=== PATIENT | female | born 1990 | race Asian ===

== ENCOUNTER 2022-01-19 03:31 | Emergency (ER) | payer BC ==
[2022-01-19] MEDS ORDERED: Ondansetron ODT 4 MG TAB ONE (04:12)
[2022-01-19] MEDS ORDERED: Dicyclomine 20 MG TAB ONE (04:14)
== END 2022-01-19 05:15 | disposition home or self-care (01) ==
LOC: CSHERS 03:31
DX: R10.33 Periumbilical pain (principal); R11.10 Vomiting, unspecified
CPT/HCPCS: 96360; Q0162

== ENCOUNTER 2022-01-24 06:59 | Inpatient (IN) | payer BC ==
[2022-01-24 07:51] LABS: #Basophils 0.1 10x3/uL (0.0-0.2); #Eosinphils 0.2 10x3/uL (0.0-0.5); #Monocytes 0.8 10x3/uL (0.0-1.1); #Neutrophils 10.5 10x3/uL (1.5-8.4); %Basophils 0.4 % (0.0-2.0); %Eosinophils 1.5 % (0.0-6.0); %Lymphocytes 16.1 % (18.0-47.0); %Monocytes 5.9 % (0.0-10.0); %Neutrophils 75.7 % (40.0-75.0); Hemoglobin 12.4 g/dL (12.0-15.5); Mean Corpuscular HGB CONC 32.5 g/dL (32.0-36.0); Mean Corpuscular Hemoglobin 26.6 pg (27.0-33.0); Mean Corpuscular Volume 81.8 fl (81.6-98.3); Mean Platelet Volume 9.7 fl (7.4-10.4); Platelet Count 418 10x3/uL (150-450); RBC Distribution Width 13.1 % (11.5-14.5); Red Blood Cell (RBC) Count 4.67 10x6/uL (3.90-5.03); White Blood Cell (WBC) Count 13.9 10x3/uL (3.5-10.5)
[2022-01-24] MEDS ORDERED: Piperacillin/Tazobactam 3.375 GM VIAL ONE (08:11)
[2022-01-24] MEDS ORDERED: Ketorolac Tromethamine 30 MG/ML VIAL ONE (08:11)
[2022-01-24 08:18] LABS: ALT (SGPT) 9 U/L (8-55); AST (SGOT) 11 U/L (5-34); Alkaline Phosphatase 77 U/L (40-110); Anion Gap 14 mmol/L (10-20); BUN (Urea Nitrogen) 5 mg/dL (7.0-18.7); Bilirubin, Total 0.4 mg/dL (0.2-1.2); Calc. Creatinine Clearance 0 mL/min (70-130); Calcium 9.3 mg/dL (7.8-10.44); Carbon Dioxide 26 mmol/L (22-29); Chloride 102 mmol/L (98-107); Estimated GFR 100; Globulin 3.6 g/dL (2.4-3.5); Glucose 100 mg/dL (70-105); Potassium 4.3 mmol/L (3.5-5.1); Protein, Total 7.6 g/dL (6.0-8.3); Sodium 138 mmol/L (136-145)
[2022-01-24 08:29] LABS: Bilirubin Neg (Negative); Blood, Urine 10 (Negative); Clarity Clear (Clear); Glucose, Urine (Dipstick) Normal (Negative); Ketone, Urine Negative (Negative); Leukocyte 25 (Negative); Nitrite Negative (Negative); Protein, Urine (Dipstick) Negative (Neg-Trace); Urobilinogen Normal mg/dL (Less than 2)
[2022-01-24 08:35] LABS: Pregnancy Test - Urine (BHCG) Negative (Negative); Pregu Control Background? CLEAR/WHITE (CLR/WHITE); Pregu Control Bar Appear? YES (CONTROL BAR)
[2022-01-24 08:40] LABS: Bacteria/HPF 2+ HPF (None Seen); RBC/HPF 0-3 HPF (0-3); Squamous Epithelial 0-3 HPF (0-3); WBC/HPF 0-3 HPF (0-3)
[2022-01-24] MEDS ORDERED: methylPREDNISolone Sod Succ/PF 125 MG/2 ML VIAL ONE (09:03)
[2022-01-24] MEDS ORDERED: diphenhydrAMINE 50 MG/ML VIAL ONE (09:03)
[2022-01-24] MEDS ORDERED: Iopamidol 300 61% 100 ML VIAL FS ONE (10:01)
[2022-01-24 10:32] LABS: SARS-CoV-2 NAA Rapid Test Not Detected (NotDetected)
[2022-01-24] MEDS ORDERED: Ondansetron PF 4 MG/2 ML Vial IVP PRN (12:29)
[2022-01-24] MEDS ORDERED: Morphine 4 MG/ML VIAL SLOW IVP PRN ×2 (12:30→16:50)
[2022-01-24] MEDS ORDERED: Meropenem 1 GM in Sodium Chloride 0.9% 100 ML IVPB SCH (17:00)
[2022-01-24 17:36] VITALS: BMI 29.7
[2022-01-24] MEDS ORDERED: Meropenem 1 GM VIAL ONE (17:58)
[2022-01-24] MEDS ORDERED: Piperacillin/Tazobactam 3.375 GM in Sodium Chloride 0.9% 100 ML IVPB SCH (18:00)
[2022-01-24] MEDS: D5 1/2 NS w/20 mEq KCL 1,000 ML IV SCH (18:00)
[2022-01-25] MEDS: Meropenem 1 GM in Sodium Chloride 0.9% 100 ML IVPB SCH ×3 (01:15→17:00)
[2022-01-25] MEDS: D5 1/2 NS w/20 mEq KCL 1,000 ML IV SCH ×2 (03:38→13:10)
[2022-01-25] MEDS: Enoxaparin Sodium 40 MG/0.4 ML SYRINGE SC SCH (09:02)
[2022-01-25] MEDS: Famotidine/PF 20 mg/2ml Vial SLOW IVP SCH ×2 (09:02→20:37)
[2022-01-25 09:37] LABS: #Basophils 0.1 10x3/uL (0.0-0.2); #Monocytes 0.7 10x3/uL (0.0-1.1); #Neutrophils 10.1 10x3/uL (1.5-8.4); %Basophils 0.4 % (0.0-2.0); %Eosinophils 0.2 % (0.0-6.0); %Lymphocytes 19.9 % (18.0-47.0); %Monocytes 5.1 % (0.0-10.0); Hemoglobin 11.5 g/dL (12.0-15.5); Mean Corpuscular HGB CONC 33.2 g/dL (32.0-36.0); Mean Corpuscular Hemoglobin 27.3 pg (27.0-33.0); Mean Corpuscular Volume 82.2 fl (81.6-98.3); Mean Platelet Volume 9.8 fl (7.4-10.4); Platelet Count 408 10x3/uL (150-450); RBC Distribution Width 12.9 % (11.5-14.5); Red Blood Cell (RBC) Count 4.21 10x6/uL (3.90-5.03); White Blood Cell (WBC) Count 13.6 10x3/uL (3.5-10.5)
[2022-01-25 09:50] LABS: Anion Gap 11 mmol/L (10-20); BUN (Urea Nitrogen) 8 mg/dL (7.0-18.7); Calc. Creatinine Clearance 155 mL/min (70-130); Calcium 8.8 mg/dL (7.8-10.44); Carbon Dioxide 25 mmol/L (22-29); Chloride 106 mmol/L (98-107); Estimated GFR 121; Glucose 100 mg/dL (70-105); Potassium 4.1 mmol/L (3.5-5.1); Sodium 138 mmol/L (136-145)
[2022-01-25] MEDS ORDERED: Acetaminophen 325 MG TAB PO PRN (11:25)
[2022-01-25] MEDS: Ketorolac Tromethamine 30 MG/ML VIAL IVP PRN (13:21)
[2022-01-26] MEDS: Meropenem 1 GM in Sodium Chloride 0.9% 100 ML IVPB SCH ×3 (01:15→17:00)
[2022-01-26] MEDS: D5 1/2 NS w/20 mEq KCL 1,000 ML IV SCH ×3 (01:15→20:56)
[2022-01-26] MEDS: Acetaminophen 325 MG TAB PO PRN ×2 (01:16→17:02)
[2022-01-26 04:47] LABS: #Basophils 0.1 10x3/uL (0.0-0.2); #Eosinphils 0.1 10x3/uL (0.0-0.5); #Monocytes 0.8 10x3/uL (0.0-1.1); #Neutrophils 8.9 10x3/uL (1.5-8.4); %Basophils 0.6 % (0.0-2.0); %Eosinophils 0.7 % (0.0-6.0); %Lymphocytes 19.2 % (18.0-47.0); %Monocytes 6.4 % (0.0-10.0); %Neutrophils 72.7 % (40.0-75.0); Hemoglobin 12.1 g/dL (12.0-15.5); Mean Corpuscular Hemoglobin 26.8 pg (27.0-33.0); Mean Corpuscular Volume 81.2 fl (81.6-98.3); Mean Platelet Volume 9.9 fl (7.4-10.4); Platelet Count 413 10x3/uL (150-450); RBC Distribution Width 12.8 % (11.5-14.5); Red Blood Cell (RBC) Count 4.52 10x6/uL (3.90-5.03); White Blood Cell (WBC) Count 12.2 10x3/uL (3.5-10.5)
[2022-01-26] MEDS: Enoxaparin Sodium 40 MG/0.4 ML SYRINGE SC SCH (08:46)
[2022-01-26] MEDS: Famotidine/PF 20 mg/2ml Vial SLOW IVP SCH ×2 (08:47→20:57)
[2022-01-26] MEDS: Ketorolac Tromethamine 30 MG/ML VIAL IVP PRN (17:00)
[2022-01-27] MEDS: Meropenem 1 GM in Sodium Chloride 0.9% 100 ML IVPB SCH ×2 (00:49→09:01)
[2022-01-27 04:52] LABS: #Basophils 0.1 10x3/uL (0.0-0.2); #Eosinphils 0.2 10x3/uL (0.0-0.5); #Monocytes 0.7 10x3/uL (0.0-1.1); #Neutrophils 6.1 10x3/uL (1.5-8.4); %Basophils 0.6 % (0.0-2.0); %Eosinophils 1.6 % (0.0-6.0); %Monocytes 7.1 % (0.0-10.0); %Neutrophils 61.2 % (40.0-75.0); Hemoglobin 12.2 g/dL (12.0-15.5); Mean Corpuscular HGB CONC 33.2 g/dL (32.0-36.0); Mean Corpuscular Hemoglobin 26.9 pg (27.0-33.0); Mean Corpuscular Volume 81.1 fl (81.6-98.3); Mean Platelet Volume 9.7 fl (7.4-10.4); Platelet Count 446 10x3/uL (150-450); RBC Distribution Width 12.8 % (11.5-14.5); Red Blood Cell (RBC) Count 4.54 10x6/uL (3.90-5.03); White Blood Cell (WBC) Count 9.9 10x3/uL (3.5-10.5)
[2022-01-27] MEDS: D5 1/2 NS w/20 mEq KCL 1,000 ML IV SCH ×2 (05:50→12:52)
[2022-01-27] MEDS: Enoxaparin Sodium 40 MG/0.4 ML SYRINGE SC SCH (09:00)
[2022-01-27] MEDS: Famotidine/PF 20 mg/2ml Vial SLOW IVP SCH (09:01)
[2022-01-27 11:29] VITALS: TEMP 97.5
[2022-01-27] MEDS ORDERED: metroNIDAZOLE 500 MG TAB PO SCH ×2 (12:15→21:00)
[2022-01-27] MEDS: Acetaminophen 325 MG TAB PO PRN (13:10)
[2022-01-27 14:55] VITALS: BP 110/59
== END 2022-01-27 15:10 | disposition home or self-care (01) | DRG 373 ==
LOC: CSHERS 06:59 → CSHERHOLD 13:28 → CSHTELE 16:39
PROVIDERS: ADMIT Family Medicine; ATTEND Family Medicine
DX: K35.33 Acute appendicitis with perforation, localized peritonitis, and gangrene, with abscess (principal); Z20.822 Contact with and (suspected) exposure to COVID-19; Z90.721 Acquired absence of ovaries, unilateral
CPT/HCPCS: 36415; 74177; 80048; 80053; 81003; 81015; 81025; 85025; 96374; 96375; J1200; J1650; J1885; J2185; J2405; J2543; J2930; J3480; J3490; Q9967; S0028; U0002

== ENCOUNTER 2022-01-28 10:37 | Emergency (ER) | payer BC ==
[~2022-01-28 10:37] MED LIST: Iopamidol 300 61% 100 ML VIAL FS ONE
[2022-01-28 12:34] LABS: Bilirubin Neg (Negative); Blood, Urine 250 (Negative); Glucose, Urine (Dipstick) Normal (Negative); Ketone, Urine 5 mg/dL (Negative); Leukocyte 100 (Negative); Nitrite Negative (Negative); Protein, Urine (Dipstick) 30 mg/dl (Neg-Trace); Urobilinogen Normal mg/dL (Less than 2)
[2022-01-28 12:40] LABS: Clarity Slightly Cloudy (Clear)
[2022-01-28 13:00] LABS: Bacteria/HPF 1+ HPF (None Seen)
[2022-01-28] MEDS ORDERED: Ondansetron ODT 4 MG TAB ONE (14:24)
[2022-01-28 14:31] LABS: Bilirubin Neg (Negative); Blood, Urine Negative (Negative); Clarity Clear (Clear); Glucose, Urine (Dipstick) Normal (Negative); Ketone, Urine Negative (Negative); Leukocyte 25 (Negative); Nitrite Negative (Negative); Protein, Urine (Dipstick) Negative (Neg-Trace); Urobilinogen Normal mg/dL (Less than 2)
[2022-01-28 14:44] LABS: Bacteria/HPF None Seen HPF (None Seen); RBC/HPF 0-3 HPF (0-3); Squamous Epithelial 0-3 HPF (0-3); WBC/HPF 0-3 HPF (0-3)
== END 2022-01-28 17:00 | disposition home or self-care (01) ==
LOC: CSHERS 10:37
DX: R30.0 Dysuria (principal); R31.9 Hematuria, unspecified; R10.9 Unspecified abdominal pain; Z79.899 Other long term (current) drug therapy
CPT/HCPCS: 51701; 74177; 81003; 81015; Q0162; Q9967

== ENCOUNTER 2022-02-01 14:44 | Inpatient (IN) | payer BC ==
[2022-02-01 15:17] LABS: #Basophils 0.1 10x3/uL (0.0-0.2); #Monocytes 1.4 10x3/uL (0.0-1.1); #Neutrophils 12.7 10x3/uL (1.5-8.4); %Basophils 0.3 % (0.0-2.0); %Eosinophils 0.2 % (0.0-6.0); %Lymphocytes 17.1 % (18.0-47.0); %Monocytes 8.2 % (0.0-10.0); %Neutrophils 73.8 % (40.0-75.0); Hemoglobin 12.7 g/dL (12.0-15.5); Mean Corpuscular HGB CONC 33.2 g/dL (32.0-36.0); Mean Corpuscular Hemoglobin 26.7 pg (27.0-33.0); Mean Corpuscular Volume 80.3 fl (81.6-98.3); Mean Platelet Volume 9.5 fl (7.4-10.4); Platelet Count 521 10x3/uL (150-450); RBC Distribution Width 12.9 % (11.5-14.5); Red Blood Cell (RBC) Count 4.76 10x6/uL (3.90-5.03); White Blood Cell (WBC) Count 17.2 10x3/uL (3.5-10.5)
[2022-02-01 15:29] LABS: ALT (SGPT) 11 U/L (8-55); AST (SGOT) 11 U/L (5-34); Albumin 3.9 g/dL (3.5-5.0); Alkaline Phosphatase 80 U/L (40-110); Anion Gap 13 mmol/L (10-20); BUN (Urea Nitrogen) 8 mg/dL (7.0-18.7); Bilirubin, Total 0.3 mg/dL (0.2-1.2); Calc. Creatinine Clearance 0 mL/min (70-130); Calcium 9.2 mg/dL (7.8-10.44); Carbon Dioxide 26 mmol/L (22-29); Chloride 100 mmol/L (98-107); Estimated GFR 108; Glucose 98 mg/dL (70-105); Lipase 13 U/L (8-78); Potassium 4.5 mmol/L (3.5-5.1); Protein, Total 7.9 g/dL (6.0-8.3); Sodium 134 mmol/L (136-145)
[2022-02-01] MEDS ORDERED: Ondansetron PF 4 MG/2 ML Vial ONE (15:30)
[2022-02-01] MEDS ORDERED: Morphine 4 MG/ML VIAL ONE (15:30)
[2022-02-01 15:31] LABS: Bilirubin Neg (Negative); Blood, Urine 250 (Negative); Clarity Clear (Clear); Glucose, Urine (Dipstick) Normal (Negative); Ketone, Urine Negative (Negative); Leukocyte 25 (Negative); Nitrite Negative (Negative); Protein, Urine (Dipstick) 15 mg/dl (Neg-Trace); Urobilinogen Normal mg/dL (Less than 2)
[2022-02-01 15:44] LABS: Pregnancy Test - Urine (BHCG) Negative (Negative); Pregu Control Background? CLEAR/WHITE (CLR/WHITE); Pregu Control Bar Appear? YES (CONTROL BAR)
[2022-02-01 15:50] LABS: Bacteria/HPF 1+ HPF (None Seen); RBC/HPF 0-3 HPF (0-3); Squamous Epithelial 0-3 HPF (0-3); WBC/HPF 0-3 HPF (0-3)
[2022-02-01] MEDS ORDERED: Cefepime 1 GM VIAL ONE (18:23)
[2022-02-01] MEDS ORDERED: metroNIDAZOLE 500 MG/100 ML BAG ONE (18:58)
[2022-02-01] MEDS ORDERED: Acetaminophen 325 MG TAB PO PRN (21:30)
[2022-02-01] MEDS ORDERED: Ondansetron PF 4 MG/2 ML Vial IVP PRN (21:30)
[2022-02-01] MEDS ORDERED: Ondansetron ODT 4 MG TAB SL PRN (21:30)
[2022-02-01] MEDS: Morphine 4 MG/ML VIAL SLOW IVP PRN (21:32)
[2022-02-01] MEDS: Sodium Chloride 0.9% 1,000 ML IV SCH (21:43)
[2022-02-01 21:47] VITALS: BMI 30.4
[2022-02-01] MEDS ORDERED: Piperacillin/Tazobactam 3.375 GM in Sodium Chloride 0.9% 100 ML IVPB SCH (22:00)
[2022-02-02 01:06] LABS: SARS-CoV-2 NAA Rapid Test Not Detected (NotDetected)
[2022-02-02] MEDS: Morphine 4 MG/ML VIAL SLOW IVP PRN (01:38)
[2022-02-02] MEDS: Sodium Chloride 0.9% 1,000 ML IV SCH (07:25)
[2022-02-02] MEDS ORDERED: FLU VACC QS2022-23(6MOS UP)/PF 60 MCG/0.5 ML SYRINGE IM ONE (08:00)
[2022-02-02] MEDS ORDERED: Sodium Chloride 0.9% 1,000 ML IV SCH (09:15)
[2022-02-02] MEDS: Morphine 2 MG/ML VIAL SLOW IVP PRN (09:36)
[2022-02-02] MEDS: Cefepime 2 GM in Sodium Chloride 0.9% 100 ML IVPB SCH ×2 (11:44→23:16)
[2022-02-02] MEDS: metroNIDAZOLE 500 MG in Premix Bag 1 BAG IVPB SCH ×2 (12:55→21:19)
[2022-02-02] MEDS ORDERED: Dexmedetomidine 200 MCG/2 ML VIAL ONE (15:50)
[2022-02-02] MEDS ORDERED: hydrALAZINE 20 MG/ML VIAL SLOW IVP PRN (15:50)
[2022-02-02] MEDS ORDERED: Dextrose 50% Abboject 50 ML SYRINGE SLOW IVP PRN (15:50)
[2022-02-02] MEDS ORDERED: Dextrose 5% in Water 1,000 ML IV PRN (15:50)
[2022-02-02] MEDS ORDERED: Fentanyl 100 MCG/2 ML VIAL ONE ×2 (15:54→18:57)
[2022-02-02] MEDS ORDERED: PROPOFOL 20 ML ONE ×2 (15:54→18:57)
[2022-02-02] MEDS ORDERED: Ondansetron PF 4 MG/2 ML Vial ONE (15:55)
[2022-02-02] MEDS ORDERED: Succinylcholine 200 MG/10 ml SYRINGE FS ONE (15:55)
[2022-02-02] MEDS ORDERED: Dexamethasone 20 MG/5 ML VIAL ONE (15:55)
[2022-02-02] MEDS ORDERED: Rocuronium Bromide 10 MG/ML (10ML VIAL) ONE ×2 (15:55→18:21)
[2022-02-02] MEDS ORDERED: EPINEPHrine 1 MG/ML AMP ONE (16:01)
[2022-02-02] MEDS ORDERED: Bupivacaine 0.25% HCL 30 ML VIAL ONE (16:01)
[2022-02-02] MEDS ORDERED: ePHEDrine Sulfate 50 MG/10 ML VIAL ONE (17:36)
[2022-02-02] MEDS ORDERED: Ketorolac Tromethamine 30 MG/ML VIAL IVP SCH (18:00)
[2022-02-02] MEDS ORDERED: Albumin 5% 250 ML ONE (18:23)
[2022-02-02] MEDS ORDERED: Ketorolac Tromethamine 30 MG/ML VIAL ONE (18:51)
[2022-02-02] MEDS ORDERED: Glycopyrrolate 0.2 MG/ML 5 ML SYRINGE ONE (18:51)
[2022-02-02] MEDS: Famotidine/PF 20 mg/2ml Vial SLOW IVP SCH (21:18)
[2022-02-02] MEDS: Ketorolac Tromethamine 30 MG/ML VIAL IVP SCH (21:18)
[2022-02-02] MEDS: D5 1/2 NS w/20 mEq KCL 1,000 ML IV SCH (21:18)
[2022-02-03] MEDS: Ketorolac Tromethamine 30 MG/ML VIAL IVP SCH ×4 (01:11→20:53)
[2022-02-03] MEDS: metroNIDAZOLE 500 MG in Premix Bag 1 BAG IVPB SCH ×3 (04:32→20:55)
[2022-02-03 05:11] LABS: Anion Gap 12 mmol/L (10-20); BUN (Urea Nitrogen) 8 mg/dL (7.0-18.7); Calc. Creatinine Clearance 147 mL/min (70-130); Calcium 8.7 mg/dL (7.8-10.44); Carbon Dioxide 25 mmol/L (22-29); Chloride 103 mmol/L (98-107); Estimated GFR 117; Glucose 228 mg/dL (70-105); Potassium 4.7 mmol/L (3.5-5.1); Sodium 135 mmol/L (136-145)
[2022-02-03 05:14] LABS: #Monocytes 0.7 10x3/uL (0.0-1.1); #Neutrophils 17.8 10x3/uL (1.5-8.4); %Basophils 0.2 % (0.0-2.0); %Eosinophils 0.1 % (0.0-6.0); %Lymphocytes 4.6 % (18.0-47.0); %Monocytes 3.8 % (0.0-10.0); %Neutrophils 90.9 % (40.0-75.0); Hemoglobin 11.5 g/dL (12.0-15.5); Mean Corpuscular HGB CONC 33.6 g/dL (32.0-36.0); Mean Corpuscular Hemoglobin 27.1 pg (27.0-33.0); Mean Corpuscular Volume 80.7 fl (81.6-98.3); Mean Platelet Volume 9.7 fl (7.4-10.4); Platelet Count 469 10x3/uL (150-450); RBC Distribution Width 13.1 % (11.5-14.5); Red Blood Cell (RBC) Count 4.24 10x6/uL (3.90-5.03); White Blood Cell (WBC) Count 19.6 10x3/uL (3.5-10.5)
[2022-02-03] MEDS: D5 1/2 NS w/20 mEq KCL 1,000 ML IV SCH (08:03)
[2022-02-03] MEDS: D5 0.9% NS w/ 20 mEq KCl 1,000 ML IV SCH ×2 (08:54→20:53)
[2022-02-03] MEDS: Famotidine/PF 20 mg/2ml Vial SLOW IVP SCH ×2 (08:55→20:54)
[2022-02-03] MEDS: Enoxaparin Sodium 40 MG/0.4 ML SYRINGE SC SCH (08:59)
[2022-02-03] MEDS ORDERED: Polyethylene Glycol 3350 17 GM Packet PO SCH (16:30)
[2022-02-03] MEDS: HYDROcodone/Acetaminophen 10/325 mg Tablet PO PRN (18:42)
[2022-02-03] MEDS: Cefepime 2 GM in Sodium Chloride 0.9% 100 ML IVPB SCH ×2 (18:43→23:31)
[2022-02-03] MEDS: Morphine 2 MG/ML VIAL SLOW IVP PRN (22:20)
[2022-02-04] MEDS: Ketorolac Tromethamine 30 MG/ML VIAL IVP SCH ×4 (01:10→20:00)
[2022-02-04] MEDS: Ondansetron PF 4 MG/2 ML Vial IVP PRN ×3 (01:12→19:58)
[2022-02-04] MEDS: metroNIDAZOLE 500 MG in Premix Bag 1 BAG IVPB SCH ×3 (04:26→20:01)
[2022-02-04] MEDS: D5 0.9% NS w/ 20 mEq KCl 1,000 ML IV SCH ×4 (04:28→20:11)
[2022-02-04] MEDS: Morphine 2 MG/ML VIAL SLOW IVP PRN ×4 (04:37→23:15)
[2022-02-04 05:25] LABS: #Monocytes 0.5 10x3/uL (0.0-1.1); %Basophils 0.2 % (0.0-2.0); %Eosinophils 0.1 % (0.0-6.0); %Lymphocytes 5.9 % (18.0-47.0); %Monocytes 3.3 % (0.0-10.0); %Neutrophils 90.1 % (40.0-75.0); Hemoglobin 10.9 g/dL (12.0-15.5); Mean Corpuscular HGB CONC 33.4 g/dL (32.0-36.0); Mean Corpuscular Hemoglobin 27.3 pg (27.0-33.0); Mean Corpuscular Volume 81.7 fl (81.6-98.3); Mean Platelet Volume 9.7 fl (7.4-10.4); Platelet Count 522 10x3/uL (150-450); RBC Distribution Width 13.2 % (11.5-14.5); Red Blood Cell (RBC) Count 3.99 10x6/uL (3.90-5.03); White Blood Cell (WBC) Count 14.5 10x3/uL (3.5-10.5)
[2022-02-04 05:31] LABS: Anion Gap 12 mmol/L (10-20); BUN (Urea Nitrogen) 8 mg/dL (7.0-18.7); Calc. Creatinine Clearance 158 mL/min (70-130); Calcium 8.3 mg/dL (7.8-10.44); Carbon Dioxide 24 mmol/L (22-29); Chloride 106 mmol/L (98-107); Estimated GFR 121; Glucose 138 mg/dL (70-105); Potassium 4.2 mmol/L (3.5-5.1); Sodium 138 mmol/L (136-145)
[2022-02-04] MEDS: HYDROcodone/Acetaminophen 10/325 mg Tablet PO PRN ×3 (09:30→19:59)
[2022-02-04] MEDS: Enoxaparin Sodium 40 MG/0.4 ML SYRINGE SC SCH (09:30)
[2022-02-04] MEDS: Famotidine/PF 20 mg/2ml Vial SLOW IVP SCH ×2 (09:30→20:00)
[2022-02-04] MEDS: Polyethylene Glycol 3350 17 GM Packet PO SCH (10:51)
[2022-02-04] MEDS: Cefepime 2 GM in Sodium Chloride 0.9% 100 ML IVPB SCH ×2 (11:43→23:15)
[2022-02-04] MEDS ORDERED: metroNIDAZOLE 500 MG/100 ML BAG ONE (13:54)
[2022-02-04] MEDS ORDERED: Sodium Chloride 0.9% 1,000 ML IV SCH (19:15)
[2022-02-05] MEDS: Ketorolac Tromethamine 30 MG/ML VIAL IVP SCH ×4 (02:13→21:43)
[2022-02-05] MEDS: Ondansetron PF 4 MG/2 ML Vial IVP PRN ×2 (02:14→08:46)
[2022-02-05 04:12] LABS: Hemoglobin 10.9 g/dL (12.0-15.5); Mean Corpuscular HGB CONC 32.4 g/dL (32.0-36.0); Mean Corpuscular Hemoglobin 26.7 pg (27.0-33.0); Mean Corpuscular Volume 82.4 fl (81.6-98.3); Mean Platelet Volume 9.7 fl (7.4-10.4); Platelet Count 570 10x3/uL (150-450); RBC Distribution Width 13.4 % (11.5-14.5); Red Blood Cell (RBC) Count 4.08 10x6/uL (3.90-5.03); White Blood Cell (WBC) Count 17.6 10x3/uL (3.5-10.5)
[2022-02-05] MEDS: metroNIDAZOLE 500 MG in Premix Bag 1 BAG IVPB SCH ×3 (04:15→21:45)
[2022-02-05 04:21] LABS: Anion Gap 12 mmol/L (10-20); BUN (Urea Nitrogen) 8 mg/dL (7.0-18.7); Calc. Creatinine Clearance 134 mL/min (70-130); Calcium 8.3 mg/dL (7.8-10.44); Carbon Dioxide 23 mmol/L (22-29); Chloride 102 mmol/L (98-107); Estimated GFR 105; Glucose 163 mg/dL (70-105); Potassium 4.7 mmol/L (3.5-5.1); Sodium 132 mmol/L (136-145)
[2022-02-05 04:25] LABS: MDiff Complete? YES
[2022-02-05 04:28] LABS: Band 28 % (5-11); Eosinophils 1 % (0-10); Lymphocytes 7 % (21-51)
[2022-02-05 04:29] LABS: Monocytes 1 % (0-10); Neutrophil 63 % (42-75)
[2022-02-05 04:30] LABS: Platelet Morphology Comment Appears Increased; RBC Morphology Normal
[2022-02-05] MEDS: D5 0.9% NS w/ 20 mEq KCl 1,000 ML IV SCH ×2 (06:23→18:15)
[2022-02-05] MEDS: Enoxaparin Sodium 40 MG/0.4 ML SYRINGE SC SCH (08:47)
[2022-02-05] MEDS: Famotidine/PF 20 mg/2ml Vial SLOW IVP SCH ×2 (08:47→21:43)
[2022-02-05] MEDS: Polyethylene Glycol 3350 17 GM Packet PO SCH (08:47)
[2022-02-05] MEDS: Cefepime 2 GM in Sodium Chloride 0.9% 100 ML IVPB SCH (12:10)
[2022-02-05] MEDS: Morphine 2 MG/ML VIAL SLOW IVP PRN (12:20)
[2022-02-05] MEDS ORDERED: Midazolam HCl 2 mg/2 ml Vial ONE (13:16)
[2022-02-05] MEDS ORDERED: Fentanyl 100 MCG/2 ML VIAL ONE ×2 (13:16→16:02)
[2022-02-05] MEDS ORDERED: Ondansetron PF 4 MG/2 ML Vial ONE (13:16)
[2022-02-05] MEDS ORDERED: Dexamethasone 4 mg/ml Vial ONE (13:16)
[2022-02-05] MEDS ORDERED: Rocuronium Bromide 10 MG/ML (10ML VIAL) ONE (13:16)
[2022-02-05] MEDS ORDERED: PROPOFOL 20 ML ONE (13:16)
[2022-02-05] MEDS ORDERED: Propofol 1,000 MG/100 ML VIAL IV ONE (13:17)
[2022-02-05] MEDS ORDERED: HYDROmorphone 0.5 MG/0.5 ML SYRINGE ONE (13:17)
[2022-02-05] MEDS ORDERED: Norepinephrine 4 MG/4 ML VIAL ONE (13:48)
[2022-02-05] MEDS ORDERED: Glycopyrrolate 0.2 MG/ML 5 ML SYRINGE ONE (15:54)
[2022-02-06] MEDS: Ketorolac Tromethamine 30 MG/ML VIAL IVP SCH ×4 (01:52→21:31)
[2022-02-06] MEDS: Cefepime 2 GM in Sodium Chloride 0.9% 100 ML IVPB SCH ×3 (01:52→23:58)
[2022-02-06] MEDS: D5 0.9% NS w/ 20 mEq KCl 1,000 ML IV SCH ×2 (02:00→11:00)
[2022-02-06 05:10] LABS: Potassium 4.9 mmol/L (3.5-5.1)
[2022-02-06] MEDS: metroNIDAZOLE 500 MG in Premix Bag 1 BAG IVPB SCH ×3 (06:32→21:27)
[2022-02-06 08:17] LABS: #Monocytes 0.6 10x3/uL (0.0-1.1); #Neutrophils 11.9 10x3/uL (1.5-8.4); %Basophils 0.1 % (0.0-2.0); %Eosinophils 0.1 % (0.0-6.0); %Lymphocytes 5.7 % (18.0-47.0); %Monocytes 4.5 % (0.0-10.0); %Neutrophils 89.1 % (40.0-75.0); Hemoglobin 9.5 g/dL (12.0-15.5); Mean Corpuscular HGB CONC 32.4 g/dL (32.0-36.0); Mean Corpuscular Hemoglobin 26.4 pg (27.0-33.0); Mean Corpuscular Volume 81.4 fl (81.6-98.3); Mean Platelet Volume 9.4 fl (7.4-10.4); Platelet Count 499 10x3/uL (150-450); RBC Distribution Width 13.4 % (11.5-14.5); White Blood Cell (WBC) Count 13.4 10x3/uL (3.5-10.5)
[2022-02-06 08:31] LABS: ALT (SGPT) 6 U/L (8-55); AST (SGOT) 10 U/L (5-34); Albumin 2.1 g/dL (3.5-5.0); Alkaline Phosphatase 43 U/L (40-110); Anion Gap 10 mmol/L (10-20); BUN (Urea Nitrogen) 7 mg/dL (7.0-18.7); Bilirubin, Total 0.2 mg/dL (0.2-1.2); Calc. Creatinine Clearance 165 mL/min (70-130); Calcium 7.6 mg/dL (7.8-10.44); Carbon Dioxide 25 mmol/L (22-29); Chloride 107 mmol/L (98-107); Estimated GFR 122; Globulin 2.6 g/dL (2.4-3.5); Glucose 134 mg/dL (70-105); Potassium 4.3 mmol/L (3.5-5.1); Protein, Total 4.7 g/dL (6.0-8.3); Sodium 138 mmol/L (136-145)
[2022-02-06] MEDS: Enoxaparin Sodium 40 MG/0.4 ML SYRINGE SC SCH (10:03)
[2022-02-06] MEDS: Polyethylene Glycol 3350 17 GM Packet PO SCH (10:04)
[2022-02-06] MEDS: Famotidine/PF 20 mg/2ml Vial SLOW IVP SCH ×2 (10:04→21:31)
[2022-02-06] MEDS: Morphine 2 MG/ML VIAL SLOW IVP PRN (13:40)
[2022-02-06] MEDS: HYDROcodone/Acetaminophen 10/325 mg Tablet PO PRN (23:59)
[2022-02-07] MEDS: Ketorolac Tromethamine 30 MG/ML VIAL IVP SCH ×4 (01:33→21:15)
[2022-02-07] MEDS: D5 0.9% NS w/ 20 mEq KCl 1,000 ML IV SCH ×3 (03:00→10:17)
[2022-02-07 04:09] LABS: #Eosinphils 0.2 10x3/uL (0.0-0.5); #Monocytes 0.7 10x3/uL (0.0-1.1); #Neutrophils 10.8 10x3/uL (1.5-8.4); %Basophils 0.2 % (0.0-2.0); %Eosinophils 1.4 % (0.0-6.0); %Lymphocytes 10.3 % (18.0-47.0); %Monocytes 5.4 % (0.0-10.0); %Neutrophils 82.2 % (40.0-75.0); Hemoglobin 8.7 g/dL (12.0-15.5); Mean Corpuscular HGB CONC 33.5 g/dL (32.0-36.0); Mean Corpuscular Hemoglobin 27.4 pg (27.0-33.0); Mean Platelet Volume 9.4 fl (7.4-10.4); Platelet Count 521 10x3/uL (150-450); RBC Distribution Width 13.3 % (11.5-14.5); Red Blood Cell (RBC) Count 3.17 10x6/uL (3.90-5.03); White Blood Cell (WBC) Count 13.2 10x3/uL (3.5-10.5)
[2022-02-07 04:27] LABS: ALT (SGPT) 6 U/L (8-55); AST (SGOT) 10 U/L (5-34); Albumin 2.2 g/dL (3.5-5.0); Alkaline Phosphatase 46 U/L (40-110); Anion Gap 12 mmol/L (10-20); BUN (Urea Nitrogen) 10 mg/dL (7.0-18.7); Calc. Creatinine Clearance 156 mL/min (70-130); Calcium 7.7 mg/dL (7.8-10.44); Carbon Dioxide 22 mmol/L (22-29); Chloride 109 mmol/L (98-107); Estimated GFR 121; Globulin 2.7 g/dL (2.4-3.5); Glucose 122 mg/dL (70-105); Potassium 4.4 mmol/L (3.5-5.1); Protein, Total 4.9 g/dL (6.0-8.3); Sodium 139 mmol/L (136-145)
[2022-02-07] MEDS: metroNIDAZOLE 500 MG in Premix Bag 1 BAG IVPB SCH ×3 (04:43→21:16)
[2022-02-07 04:58] LABS: Bilirubin, Total 0.2 mg/dL (0.2-1.2)
[2022-02-07] MEDS: Enoxaparin Sodium 40 MG/0.4 ML SYRINGE SC SCH (10:15)
[2022-02-07] MEDS: Polyethylene Glycol 3350 17 GM Packet PO SCH (10:16)
[2022-02-07] MEDS: Famotidine/PF 20 mg/2ml Vial SLOW IVP SCH ×2 (10:16→21:16)
[2022-02-07] MEDS: Cefepime 2 GM in Sodium Chloride 0.9% 100 ML IVPB SCH (13:06)
[2022-02-07] MEDS: Ondansetron PF 4 MG/2 ML Vial IVP PRN (14:28)
[2022-02-07 16:44] LABS: #Eosinphils 0.2 10x3/uL (0.0-0.5); #Neutrophils 11.9 10x3/uL (1.5-8.4); %Basophils 0.2 % (0.0-2.0); %Eosinophils 1.6 % (0.0-6.0); %Lymphocytes 11.3 % (18.0-47.0); %Monocytes 6.5 % (0.0-10.0); %Neutrophils 79.9 % (40.0-75.0); Hemoglobin 9.1 g/dL (12.0-15.5); Mean Corpuscular HGB CONC 33.1 g/dL (32.0-36.0); Mean Corpuscular Hemoglobin 27.1 pg (27.0-33.0); Mean Corpuscular Volume 81.8 fl (81.6-98.3); Mean Platelet Volume 9.2 fl (7.4-10.4); Platelet Count 556 10x3/uL (150-450); RBC Distribution Width 13.3 % (11.5-14.5); Red Blood Cell (RBC) Count 3.36 10x6/uL (3.90-5.03); White Blood Cell (WBC) Count 14.8 10x3/uL (3.5-10.5)
[2022-02-07] MEDS: HYDROcodone/Acetaminophen 10/325 mg Tablet PO PRN ×2 (18:08→21:24)
[2022-02-08] MEDS: metroNIDAZOLE 500 MG in Premix Bag 1 BAG IVPB SCH ×3 (04:25→20:16)
[2022-02-08 04:34] LABS: Anion Gap 9 mmol/L (10-20); BUN (Urea Nitrogen) 7 mg/dL (7.0-18.7); Calc. Creatinine Clearance 177 mL/min (70-130); Calcium 7.8 mg/dL (7.8-10.44); Carbon Dioxide 25 mmol/L (22-29); Chloride 104 mmol/L (98-107); Estimated GFR 124; Glucose 121 mg/dL (70-105); Potassium 3.9 mmol/L (3.5-5.1); Sodium 134 mmol/L (136-145)
[2022-02-08] MEDS: HYDROcodone/Acetaminophen 10/325 mg Tablet PO PRN (04:36)
[2022-02-08] MEDS: Cefepime 2 GM in Sodium Chloride 0.9% 100 ML IVPB SCH ×2 (05:31→16:20)
[2022-02-08] MEDS: D5 0.9% NS w/ 20 mEq KCl 1,000 ML IV SCH ×2 (07:49→08:12)
[2022-02-08] MEDS: Famotidine/PF 20 mg/2ml Vial SLOW IVP SCH (08:12)
[2022-02-08] MEDS: Morphine 2 MG/ML VIAL SLOW IVP PRN ×2 (08:12→20:15)
[2022-02-08] MEDS: Enoxaparin Sodium 40 MG/0.4 ML SYRINGE SC SCH (08:12)
[2022-02-08] MEDS ORDERED: Acetaminophen 500 MG TAB PO SCH (10:15)
[2022-02-08] MEDS: traMADol HCl 50 MG TAB PO PRN (12:49)
[2022-02-08] MEDS: Ondansetron PF 4 MG/2 ML Vial IVP PRN ×2 (15:15→20:16)
[2022-02-08] MEDS: Promethazine HCl 25 MG/ML VIAL IM PRN (16:20)
[2022-02-08] MEDS: Acetaminophen 500 MG TAB PO PRN (23:56)
[2022-02-09] MEDS: metroNIDAZOLE 500 MG in Premix Bag 1 BAG IVPB SCH ×3 (04:04→20:18)
[2022-02-09] MEDS: Acetaminophen 500 MG TAB PO PRN ×3 (05:34→20:18)
[2022-02-09] MEDS: Cefepime 2 GM in Sodium Chloride 0.9% 100 ML IVPB SCH ×2 (05:34→17:11)
[2022-02-09] MEDS: Enoxaparin Sodium 40 MG/0.4 ML SYRINGE SC SCH (08:09)
[2022-02-09] MEDS: D5 0.9% NS w/ 20 mEq KCl 1,000 ML IV SCH ×2 (11:25→22:46)
[2022-02-09] MEDS ORDERED: metroNIDAZOLE 500 MG/100 ML BAG ONE (11:26)
[2022-02-10] MEDS: Ondansetron PF 4 MG/2 ML Vial IVP PRN ×2 (04:09→20:38)
[2022-02-10] MEDS: metroNIDAZOLE 500 MG in Premix Bag 1 BAG IVPB SCH ×3 (04:10→20:38)
[2022-02-10] MEDS: Promethazine HCl 25 MG/ML VIAL IM PRN (05:27)
[2022-02-10] MEDS: Cefepime 2 GM in Sodium Chloride 0.9% 100 ML IVPB SCH ×2 (05:29→17:27)
[2022-02-10] MEDS: D5 0.9% NS w/ 20 mEq KCl 1,000 ML IV SCH ×3 (06:03→20:30)
[2022-02-10 06:17] LABS: #Eosinphils 0.2 10x3/uL (0.0-0.5); #Monocytes 0.8 10x3/uL (0.0-1.1); #Neutrophils 9.4 10x3/uL (1.5-8.4); %Basophils 0.2 % (0.0-2.0); %Eosinophils 1.6 % (0.0-6.0); %Lymphocytes 13.8 % (18.0-47.0); %Monocytes 6.3 % (0.0-10.0); %Neutrophils 76.6 % (40.0-75.0); Hemoglobin 9.2 g/dL (12.0-15.5); Mean Corpuscular HGB CONC 34.3 g/dL (32.0-36.0); Mean Corpuscular Hemoglobin 27.3 pg (27.0-33.0); Mean Corpuscular Volume 79.5 fl (81.6-98.3); Mean Platelet Volume 9.5 fl (7.4-10.4); Platelet Count 539 10x3/uL (150-450); RBC Distribution Width 13.1 % (11.5-14.5); Red Blood Cell (RBC) Count 3.37 10x6/uL (3.90-5.03); White Blood Cell (WBC) Count 12.3 10x3/uL (3.5-10.5)
[2022-02-10 06:34] LABS: ALT (SGPT) 8 U/L (8-55); AST (SGOT) 18 U/L (5-34); Albumin 2.2 g/dL (3.5-5.0); Alkaline Phosphatase 65 U/L (40-110); Anion Gap 15 mmol/L (10-20); BUN (Urea Nitrogen) 4 mg/dL (7.0-18.7); Bilirubin, Total 0.2 mg/dL (0.2-1.2); Calc. Creatinine Clearance 193 mL/min (70-130); Calcium 7.7 mg/dL (7.8-10.44); Carbon Dioxide 24 mmol/L (22-29); Chloride 99 mmol/L (98-107); Estimated GFR 127; Globulin 3.1 g/dL (2.4-3.5); Glucose 80 mg/dL (70-105); Magnesium 1.7 mg/dL (1.6-2.6); Potassium 3.6 mmol/L (3.5-5.1); Protein, Total 5.3 g/dL (6.0-8.3); Sodium 134 mmol/L (136-145)
[2022-02-10] MEDS: Enoxaparin Sodium 40 MG/0.4 ML SYRINGE SC SCH (11:36)
[2022-02-10] MEDS: Morphine 2 MG/ML VIAL SLOW IVP PRN ×3 (11:38→21:46)
[2022-02-11] MEDS: D5 0.9% NS w/ 20 mEq KCl 1,000 ML IV SCH ×3 (02:33→14:31)
[2022-02-11] MEDS: Morphine 2 MG/ML VIAL SLOW IVP PRN ×6 (02:51→21:01)
[2022-02-11] MEDS: metroNIDAZOLE 500 MG in Premix Bag 1 BAG IVPB SCH ×3 (04:58→20:31)
[2022-02-11 05:50] LABS: #Eosinphils 0.1 10x3/uL (0.0-0.5); #Monocytes 0.8 10x3/uL (0.0-1.1); %Basophils 0.3 % (0.0-2.0); %Eosinophils 1.4 % (0.0-6.0); %Monocytes 7.8 % (0.0-10.0); %Neutrophils 70.1 % (40.0-75.0); Hemoglobin 9.3 g/dL (12.0-15.5); Mean Corpuscular HGB CONC 33.3 g/dL (32.0-36.0); Mean Corpuscular Hemoglobin 26.5 pg (27.0-33.0); Mean Corpuscular Volume 79.5 fl (81.6-98.3); Mean Platelet Volume 9.3 fl (7.4-10.4); Platelet Count 594 10x3/uL (150-450); RBC Distribution Width 13.2 % (11.5-14.5); Red Blood Cell (RBC) Count 3.51 10x6/uL (3.90-5.03)
[2022-02-11] MEDS: Cefepime 2 GM in Sodium Chloride 0.9% 100 ML IVPB SCH ×2 (06:35→16:21)
[2022-02-11] MEDS: Enoxaparin Sodium 40 MG/0.4 ML SYRINGE SC SCH (08:14)
[2022-02-11] MEDS: Acetaminophen 500 MG TAB PO PRN (13:20)
[2022-02-11] MEDS: traMADol HCl 50 MG TAB PO PRN (17:38)
[2022-02-12] MEDS: traMADol HCl 50 MG TAB PO PRN ×3 (00:43→20:49)
[2022-02-12] MEDS: metroNIDAZOLE 500 MG in Premix Bag 1 BAG IVPB SCH ×3 (04:10→20:50)
[2022-02-12] MEDS: Cefepime 2 GM in Sodium Chloride 0.9% 100 ML IVPB SCH (04:11)
[2022-02-12] MEDS: Enoxaparin Sodium 40 MG/0.4 ML SYRINGE SC SCH (08:40)
[2022-02-12] MEDS: D5 0.9% NS w/ 20 mEq KCl 1,000 ML IV SCH (09:45)
[2022-02-12] MEDS: Morphine 2 MG/ML VIAL SLOW IVP PRN (10:30)
[2022-02-12] MEDS ORDERED: metroNIDAZOLE 500 MG/100 ML BAG ONE (12:20)
[2022-02-12] MEDS ORDERED: HYDROcodone/Acetaminophen 5/325 mg Tablet PO PRN (14:07)
[2022-02-13] MEDS: traMADol HCl 50 MG TAB PO PRN ×3 (04:41→18:28)
[2022-02-13] MEDS: metroNIDAZOLE 500 MG in Premix Bag 1 BAG IVPB SCH (05:07)
[2022-02-13 08:17] LABS: #Eosinphils 0.1 10x3/uL (0.0-0.5); %Basophils 0.4 % (0.0-2.0); %Eosinophils 1.1 % (0.0-6.0); %Lymphocytes 14.3 % (18.0-47.0); %Monocytes 8.7 % (0.0-10.0); %Neutrophils 72.5 % (40.0-75.0); Hemoglobin 9.2 g/dL (12.0-15.5); Mean Corpuscular HGB CONC 32.9 g/dL (32.0-36.0); Mean Corpuscular Hemoglobin 26.4 pg (27.0-33.0); Mean Corpuscular Volume 80.2 fl (81.6-98.3); Mean Platelet Volume 9.4 fl (7.4-10.4); Platelet Count 617 10x3/uL (150-450); RBC Distribution Width 13.2 % (11.5-14.5); Red Blood Cell (RBC) Count 3.49 10x6/uL (3.90-5.03)
[2022-02-13] MEDS: Morphine 2 MG/ML VIAL SLOW IVP PRN (09:14)
[2022-02-13] MEDS: Enoxaparin Sodium 40 MG/0.4 ML SYRINGE SC SCH (09:14)
[2022-02-13] MEDS ORDERED: metroNIDAZOLE 500 MG in Premix Bag 1 BAG IVPB SCH (14:00)
[2022-02-13] MEDS: metroNIDAZOLE 500 MG TAB PO SCH ×2 (14:49→21:24)
[2022-02-13] MEDS: Ciprofloxacin 500 MG TAB PO SCH (21:17)
[2022-02-13] MEDS: HYDROcodone/Acetaminophen 5/325 mg Tablet PO PRN (21:22)
[2022-02-14] MEDS: Ciprofloxacin 500 MG TAB PO SCH (06:28)
[2022-02-14] MEDS: HYDROcodone/Acetaminophen 5/325 mg Tablet PO PRN (06:33)
[2022-02-14 08:14] VITALS: TEMP 98.2
[2022-02-14] MEDS: metroNIDAZOLE 500 MG TAB PO SCH (08:47)
[2022-02-14] MEDS: Enoxaparin Sodium 40 MG/0.4 ML SYRINGE SC SCH (08:47)
[2022-02-14 11:41] VITALS: BP 98/54
[2022-02-14] MEDS: Morphine 2 MG/ML VIAL SLOW IVP PRN (11:52)
== END 2022-02-14 14:03 | disposition home or self-care (01) | DRG 853 ==
LOC: CSHERS 14:44 → CSHTELE 21:23
PROVIDERS: ADMIT Surgery; ATTEND Surgery
PROC: 3E03329 Introduction of Other Anti-infective into Peripheral Vein, Percutaneous Approach (ICD-10-PCS; 2022-02-01)
PROC: 0DJ64ZZ Inspection of Stomach, Percutaneous Endoscopic Approach (ICD-10-PCS; principal; 2022-02-02)
PROC: 0W9G0ZZ Drainage of Peritoneal Cavity, Open Approach (ICD-10-PCS; 2022-02-02)
PROC: 3E033XZ Introduction of Vasopressor into Peripheral Vein, Percutaneous Approach (ICD-10-PCS; 2022-02-02)
PROC: 30233J1 Transfusion of Nonautologous Serum Albumin into Peripheral Vein, Percutaneous Approach (ICD-10-PCS; 2022-02-02)
PROC: 0DTB0ZZ Resection of Ileum, Open Approach (ICD-10-PCS; 2022-02-05)
PROC: 0DTF0ZZ Resection of Right Large Intestine, Open Approach (ICD-10-PCS; 2022-02-05)
DX: A41.9 Sepsis, unspecified organism (principal); K35.33 Acute appendicitis with perforation, localized peritonitis, and gangrene, with abscess; Z20.822 Contact with and (suspected) exposure to COVID-19; Z98.890 Other specified postprocedural states
CPT/HCPCS: 36415; 36416; 71045; 74018; 74177; 80048; 80053; 81003; 81015; 81025; 83605; 83690; 83735; 84132; 85025; 87811; 88307; 94760; 96365; 96375; 97139; A4649; J0171; J0692; J0744; J1100; J1170; J1650; J1885; J2250; J2270; J2405; J2550; J2704; J3010; J3480; J3490; J7050; P9045; S0020; S0028; U0002

== ENCOUNTER 2022-02-15 12:03 | Emergency (ER) | payer BC | END 2022-02-15 14:09 | disposition home or self-care (01) | LOC: CSHERS 12:03 | DX: K91.89 Other postprocedural complications and disorders of digestive system (principal) | CPT/HCPCS: 99283 ==